=== PATIENT | male | born 1945 | race Caucasian/White ===

== ENCOUNTER 2017-08-31 13:14 | Emergency (ER) | payer MEDICARE, BC ==
[~2017-08-31] VITALS: Ht 180.3 cm; Wt 79.4 kg
[~2017-08-31 13:14] MED LIST: ABILIFY 2 MG2 M1 PO; AMBIEN 5 MG TABL5 M1 PO; AMOXICILLIN875 MG PO; ASPIR 8181 MG PO; ASPIRIN; AUGMENTIN 875875 MG PO; BENTYL 20 MG TA20 M1 PO; BISACODYL SUPP10 MG RECTAL; BRILINTA90 MG PO; CIPROFLOXACIN500 M1 PO; COREG; COREG3.125 MG PO; COREG6.25 MG PO; CRESTOR; CRESTOR10 MG PO; CYMBALTA; CYMBALTA20 MG PO; DULOXETINE HCL60 MG PO; FLOMAX0.4 MG PO; HEART MED; HYDROCODONE-AP1 EAC6 PO; IBUPROFEN 800800 M1 PO; LEVOTHYROXIN0.025 MG PO; LEVOTHYROXIN0.088 MG PO; LEVOTHYROXINE0.05 MG PO; LIDOCAINE VISC100 M1 MM; MAALOX ADVANCE770 ML PO; METFORMIN HCL500 MG PO; MOBIC15 MG PO; NITROGLYCERIN0.4 MG SUBLING; NORCO 5-325 TA1 EACH PO; ONDANSETRON HCL4 M2 PO; PERCOCET 5-3251 EACH PO; PRAVASTATIN SOD10 MG PO; PROTONIX 20 MG20 M1 PO; SENNA8.6 MG PO; TAMSULOSIN HCL0.4 M1 PER TUBE; TORADOL 10 MG T10 MG PO; TRIAMCINOLONE A80 G2 TOP; TYLENOL EXTRA500 MG PO; ZOFRAN ODT4 MG PO; ZOFRAN ODT4 MG SUBLING; ZOFRAN4 MG PO
[2017-08-31] MEDS ORDERED: COREG6.25 MG PO (13:29)
[2017-08-31] MEDS ORDERED: SYNTHROID50 MCG PO (13:30)
[2017-08-31] MEDS ORDERED: ASPIRIN81 M2 PO (13:30)
[2017-08-31] MEDS ORDERED: PRAVACHOL20 MG PO (13:30)
[2017-08-31] MEDS ORDERED: GLUCOPHAGE XR500 MG PO (13:30)
[2017-08-31] MEDS ORDERED: NEXIUM40 MG PO (13:31)
[2017-08-31] MEDS ORDERED: ENTRESTO 24 MG1 EACH PO (13:31)
[2017-08-31 14:07] LABS: ABSOLUTE BASOPHILS 0.1 thou/uL (0.0-0.2); ABSOLUTE LYMPHOCYTES 1.4 thou/uL (0.8-5.3); ABSOLUTE MONOCYTES 0.6 thou/uL (0.0-1.2); ABSOLUTE NEUTROPHILS 7.1 thou/uL (1.6-8.1); BASOPHILS 0.7 %; EOSINOPHILS 0.4 %; HEMATOCRIT 42.6 % (42.0-52.0); HEMOGLOBIN 14.1 gm/dL (14.0-18.0); LYMPHOCYTES 14.8 %; MCH 32.3 pg (26.0-34.0); MCHC 33.1 g/dL (28.0-37.0); MCV 97.5 fL (80.0-100.0); MONOCYTES 6.8 %; MPV 8.7 fl. (7.2-11.1); NUCLEATED RBCS 0 /100WBC; PLATELET COUNT* 260 thou/uL (150-400); POLYS 77.3 %; RBC 4.37 mil/uL (4.50-6.00); RDW-CV 15.3 % (10.5-14.5); WBC 9.2 thou/uL (4.0-11.0)
[2017-08-31 14:08] LABS: URINE BLOOD NEGATIVE (Negative); URINE CLARITY CLEAR; URINE COLOR YELLOW; URINE GLUCOSE-RANDOM 1+ (Negative); URINE KETONES NEGATIVE (Negative); URINE LEUKOCYTES-REFLEX NEGATIVE (Negative); URINE NITRITE-REFLEX NEGATIVE (Negative); URINE PROTEIN 1+ (Negative); URINE SPECIFIC GRAVITY >= 1.030 (1.005-1.030); URINE UROBILINOGEN 0.2 E.U./dl (0.2-1.0)
[2017-08-31 14:09] LABS: ICTOTEST (BILI CONFIRMATORY) Negative (Negative); URINE BILIRUBIN 1+ (Negative)
[2017-08-31 14:16] LABS: AMP/METHAMP Negative (Negative); BARBITURATES Negative (Negative); BENZODIAZEPINES Negative (Negative); COCAINE Negative (Negative); METHADONE Negative (Negative); OPIATES POSITIVE (Negative); PCP Negative (Negative); THC Negative (Negative)
[2017-08-31 14:16] LABS: ANION GAP 9 mmol/L (7-16); BUN 17 mg/dL (7-18); CALCIUM 8.9 mg/dL (8.5-10.1); CHLORIDE 103 mmol/L (98-107); CO2 27 mmol/L (21-32); CREATININE 1.3 mg/dL (0.6-1.3); GLUCOSE 185 mg/dL (70-99); POTASSIUM 4.2 mmol/L (3.5-5.1); SODIUM 139 mmol/L (136-145)
[2017-08-31 14:23] LABS: ALKALINE PHOSPHATASE 63 U/L (46-116); LIPASE 64 U/L (73-393); SGOT 18 U/L (15-37); SGPT 25 U/L (30-65); TOTAL PROTEIN 7.6 g/dL (6.4-8.2); TROPONIN-I LEVEL <0.06 ng/mL (<0.06)
[2017-08-31] MEDS ORDERED: CARAFATE 1 GM TA1 GM PO (15:36)
[2017-08-31 16:10] VITALS: BP 115/73
--- NOTE | 2017-09-01 11:11 | EKG ---
[place] [address] ELECTROCARDIOGRAM REPORT Name: LONG RUIZ [id number] Admission: 08/31/17 Attend Phys: Discharge: 08/31/17 Date of : 45 Report #: [id number] THIS REPORT FOR: //name// [facility] ED Test Date: 2017-08-31 Test Time: 13:47:48 Pat Name: LONG RUIZ Department: Room: Gender: M Nursing Attendant: Indiar WELSH : 1945 Requested By: Tabatha Foster Order Number: [id number] MD: Junior Garcia Measurements Intervals [place] Rate: 81 P: 62 FL: 140 QRS: -33 QRSD: 109 T: -12 QT: 371 QTc: 431 Interpretive Statements Sinus rhythm Ventricular bigeminy Inferior infarct, old Compared to ECG 02/04/2017 01:03:31 Ventricular premature complex(es) now present Myocardial infarct finding still present Electronically Signed On 09-01-2017 11:11:09 CDT by Junior Garcia [email or web address] <ELECTRONICALLY SIGNED> By: Junior Garcia MD, [facility] 09/01/17 [facility] 1347 [id number] Junior Garcia MD, [facility] /EPI
== END 2017-08-31 16:11 | disposition home or self-care (01) ==
LOC: M.ERS 13:14
PROVIDERS: Personal Emergency Response Attendant
DX: K20.9 Esophagitis, unspecified (principal); G43.909 Migraine, unspecified, not intractable, without status migrainosus; I25.10 Atherosclerotic heart disease of native coronary artery without angina pectoris; E03.9 Hypothyroidism, unspecified; E78.5 Hyperlipidemia, unspecified; F32.9 Major depressive disorder, single episode, unspecified; E11.9 Type 2 diabetes mellitus without complications; Z87.442 Personal history of urinary calculi; Z88.8 Allergy status to other drugs, medicaments and biological substances

== ENCOUNTER 2019-12-20 13:42 | Emergency (ER) | payer MEDICARE, BC ==
[~2019-12-20] VITALS: Ht 180.3 cm; Wt 78.9 kg
[~2019-12-20 13:42] MED LIST changes: +ASPIRIN81 M2 PO; +CARAFATE 1 GM TA1 GM PO; +ENTRESTO 24 MG1 EACH PO; +GLUCOPHAGE XR500 MG PO; +NEXIUM40 MG PO; +PRAVACHOL20 MG PO; +SYNTHROID50 MCG PO
[2019-12-20] MEDS ORDERED: AMITRIPTYLINE H50 M3 PO (13:51)
[2019-12-20] MEDS ORDERED: ASA81BEC PO (13:52)
[2019-12-20] MEDS ORDERED: CARVEDILOL12.5 MG PO (13:52)
[2019-12-20] MEDS ORDERED: BRILINTA90 MG PO (13:53)
[2019-12-20 14:30] LABS: URINE BLOOD 3+ (Negative); URINE COLOR YELLOW; URINE GLUCOSE-RANDOM 1+ (Negative); URINE KETONES NEGATIVE (Negative); URINE LEUKOCYTES-REFLEX NEGATIVE (Negative); URINE NITRITE-REFLEX NEGATIVE (Negative); URINE PROTEIN 2+ (Negative); URINE SPECIFIC GRAVITY 1.025 (1.005-1.030); URINE UROBILINOGEN 0.2 E.U./dl (0.2-1.0)
[2019-12-20 14:32] LABS: ICTOTEST (BILI CONFIRMATORY) Negative (Negative); URINE BILIRUBIN 1+ (Negative); URINE CLARITY HAZY
[2019-12-20 14:40] LABS: SQUAMOUS 4-10 Moderate /LPF (0-3)
[2019-12-20 14:41] LABS: BACTERIA-REFLEX None Seen /HPF (None Seen); CASTS None Seen /LPF (None Seen); CRYSTALS None Seen /LPF (None Seen); URINE RBC >20 Many /HPF (0-2); URINE WBC-REFLEX 0-5 Rare /HPF (0-5)
[2019-12-20 15:14] LABS: ABSOLUTE EOSINOPHILS 0.2 thou/uL (0.0-0.7); ABSOLUTE LYMPHOCYTES 1.7 thou/uL (0.8-5.3); ABSOLUTE MONOCYTES 0.6 thou/uL (0.0-1.2); ABSOLUTE NEUTROPHILS 4.6 thou/uL (1.6-8.1); BASOPHILS 0.5 %; EOSINOPHILS 3.2 %; HEMATOCRIT 47.4 % (42.0-52.0); LYMPHOCYTES 23.6 %; MCH 32.6 pg (26.0-34.0); MCHC 33.7 g/dL (28.0-37.0); MCV 96.9 fL (80.0-100.0); MONOCYTES 8.1 %; MPV 8.8 fl. (7.2-11.1); NUCLEATED RBCS 0 /100WBC; PLATELET COUNT* 182 thou/uL (150-400); POLYS 64.6 %; RBC 4.89 mil/uL (4.50-6.00); RDW-CV 14.2 % (10.5-14.5)
[2019-12-20 15:24] LABS: CALCIUM 8.9 mg/dL (8.5-10.1); CREATININE 1.8 mg/dL (0.6-1.3); POTASSIUM 4.9 mmol/L (3.5-5.1)
[2019-12-20 15:29] LABS: ALBUMIN 4.5 g/dL (3.4-5.0); TOTAL BILIRUBIN 0.5 mg/dL (<0.1-1.0); TOTAL PROTEIN 8.3 g/dL (6.4-8.2)
[2019-12-20 20:00] VITALS: BP 105/62
--- NOTE | 2019-12-21 17:27 | EKG ---
[place] [address] ELECTROCARDIOGRAM REPORT Name: LONG RUIZ Room: [facility]#: [id number] Admission: 12/20/19 Attend Phys: Discharge: 12/20/19 Date of : 45 Date of Service: 12/20/19 1425 Report #: [id number] THIS REPORT FOR: //name// [facility] ED Test Date: 2019-12-20 Test Time: 14:25:35 Pat Name: LONG RUIZ Department: Room: Gender: Wharfmaster: [facility] : 1945 Requested By: Alex Arndt Order Number: [id number] MD: Donnie Li Measurements Intervals [place] Rate: 89 P: 39 NE: 144 QRS: -33 QRSD: 106 T: 20 QT: 358 QTc: 436 Interpretive Statements Sinus rhythm Left axis deviation possible inferior scar Low voltage, extremity leads Compared to ECG 08/31/2017 13:47:48 Left-axis deviation now present Low QRS voltage now present Ventricular premature complex(es) no longer present Myocardial infarct finding persists Electronically Signed On 12-21-2019 17:26:46 CDT by Donnie Li [email or web address] <ELECTRONICALLY SIGNED> By: Donnie Li MD, [facility] 12/21/19 1726 1425 1425 Donnie Li MD, [facility] /EPI
== END 2019-12-20 20:48 | disposition short-term general hospital (02) ==
LOC: M.ERS 13:42
PROVIDERS: Physician Assistant
DX: N20.0 Calculus of kidney (principal); N17.9 Acute kidney failure, unspecified; E11.9 Type 2 diabetes mellitus without complications; E03.9 Hypothyroidism, unspecified; E78.5 Hyperlipidemia, unspecified; F32.9 Major depressive disorder, single episode, unspecified; Z88.8 Allergy status to other drugs, medicaments and biological substances